=== PATIENT | female | born 1975 | race Caucasian/White ===

== ENCOUNTER 2017-07-24 14:15 | Emergency (ER) | payer OTHER ==
[~2017-07-24] VITALS: Ht 172.7 cm; Wt 134.2 kg
[2017-07-24] MEDS ORDERED: SODIUM CHLORIDE 0.9% 1000ML 1,000 ML IV STA (14:26)
[2017-07-24 14:31] VITALS: TEMP 36.8
[2017-07-24 14:34] VITALS: Ht 172.7 cm; Wt 134.2 kg
[2017-07-24 14:35] VITALS: O2SAT 99
[2017-07-24 14:49] LABS: BASO % 0.4 %; BASO ABS # 0.04 K/uL (0-0.2); EOS % 1.6 %; EOS ABS # 0.17 K/uL (0-0.5); HEMATOCRIT 36.8 % (37-47); HEMOGLOBIN 12.7 g/dL (12.0-16.0); IG# 0.05 K/uL (0.00-0.02); LYMPH % 18.7 %; LYMPH ABS # 1.95 K/uL (1.2-3.4); MEAN CELL VOLUME 84.2 fL (80-100); MEAN CORPUSCULAR HEMOGLOBIN 29.1 pg (25-34); MEAN CORPUSCULAR HGB CONC 34.5 g/dl (32-36); MEAN PLATELET VOLUME 9.8 fL (7.4-10.4); MONO % 5.7 %; NEUT % 73.1 %; NEUT ABS # 7.63 K/uL (1.4-6.5); PLATELET COUNT 285 K/uL (130-400); RED CELL DISTRIBUTION WIDTH CV 14.4 % (11.5-14.5); RED CELL DISTRIBUTION WIDTH SD 43.9 fL (36.4-46.3); WHITE BLOOD COUNT 10.44 K/uL (4.8-10.8)
[2017-07-24 14:58] LABS: PTT PATIENT 24.8 SECONDS (21.0-31.0)
[2017-07-24 15:08] LABS: ALBUMIN 3.4 gm/dl (3.4-5.0); ALT/SGPT 26 U/L (12-78); AST/SGOT 12 U/L (15-37); BLOOD UREA NITROGEN 13 mg/dl (7-18); CALCIUM 8.8 mg/dl (8.5-10.1); CARBON DIOXIDE 23 mmol/L (21-32); CREATININE 0.86 mg/dl (0.60-1.20); GLUCOSE 230 mg/dl (70-99); LIPASE 152 U/L (73-393); POTASSIUM 3.8 mmol/L (3.5-5.1); SODIUM 136 mmol/L (136-145)
[2017-07-24 15:19] LABS: ALKALINE PHOSPHATASE 89 U/L (45-117); TOTAL PROTEIN 7.5 gm/dl (6.4-8.2)
[2017-07-24] MEDS ORDERED: CEFD1CAP14 PO (15:51)
[2017-07-24] MEDS ORDERED: GLC/500 PO (15:51)
[2017-07-24] MEDS ORDERED: LEVO100T7 PO (15:51)
[2017-07-24] MEDS ORDERED: LISI-789 PO (15:51)
[2017-07-24] MEDS ORDERED: ERGO500037 PO (15:51)
[2017-07-24] MEDS ORDERED: LORA10TA6 PO (15:51)
[2017-07-24 17:17] VITALS: BP 152/88; PULSE 102; O2SAT 98
--- NOTE | 2017-07-24 22:31 | EMERGENCY ROOM VISIT NOTE ---
History Report prepared by Kim: Curtis Brady Under the Supervision of: Dr. Omar Simon M.D. First contact with patient: 14:26 Chief Complaint: SYNCOPE (NEAR SYNCOPE) Stated Complaint: NEAR SYNCOPE/HYPERGLYCEMIA Nursing Triage Summary: BECAME DIZZY TODAY HAS BEEN HAVING INCREASE BLOOD SUGARS History of Present Illness The patient is a 42 year old female who presents to the Emergency Room with complaints of waxing and waning unstable blood sugar levels that she noticed this morning, several hours prior to arrival. The patient states that her sugars were into the 300's this morning, and spiked again after lunch. She states that she felt dizzy, light headed, and fatigued with her unstable sugar levels. She also felt some shortness of breath while moving around today. She has had these symptoms in the past when her sugar is high. The patient was on a prescription of Prednisone last week and took the last dosage las Friday, one week ago. Her blood sugars have been unstable since November of last year, which is when she was started on Metformin by her primary care physician. The patient had a sinus infection two weeks ago, but denies any current LOC, headache, fevers, chills, diaphoresis, visual changes, neck pain, chest pain, nausea, vomiting, abdominal pain, back pain, melena, hematochezia, urinary symptoms, lymphadenopathy, rash, or other complaints. 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 Review of Systems See HPI for pertinent positives and negatives. A total of ten systems were reviewed and were otherwise negative. Past Medical & Surgical Medical Problems: (1) Diabetes Diabetes Family History Diabetes mellitus Social History Smoking Status: Never Smoker Marital Status: Housing Status: lives with family Occupation Status: employed Current/Historical Medications Scheduled Cefdinir (Omnicef), 300 MG PO Q12H Ergocalciferol (Vitamin D 95510 Unit), 50,000 INTER.UNIT PO WK Levothyroxine Sodium (Levothyroxine Sodium), 100 MCG PO DAILY Lisinopril (Zestril), 2.5 MG PO DAILY Loratadine (Claritin), 10 MG PO DAILY Metformin Hcl (Glucophage), 500 MG PO BID Allergies Coded Allergies: Ibuprofen (Verified Allergy, Severe, Swelling of tongue and throat, 1/18/ 18) Physical Exam Vital Signs Date Time Temp Pulse Resp B/P (MAP) Pulse Ox O2 Delivery O2 Flow Rate FiO2 07/24/17 17:17 102 20 152/88 98 07/24/17 15:03 113 19 139/84 97 Room Air 07/24/17 14:35 99 Room Air 07/24/17 14:31 36.8 117 18 128/80 99 Room Air 07/24/17 14:30 116 Physical Exam GENERAL: Awake, alert, Tearful appearing HENT: Normocephalic, atraumatic. Oropharynx unremarkable. EYES: Normal conjunctiva. Sclera non-icteric. NECK: Supple. No nuchal rigidity. FROM. No JVD. RESPIRATORY: Clear to auscultation. CARDIAC: Tachycardic rate, normal rhythm. Extremities warm and well perfused. Pulses equal. ABDOMEN: Soft, non-distended. No tenderness to palpation. No rebound or guarding. No masses. RECTAL: Deferred. MUSCULOSKELETAL: Chest examination reveals no tenderness. The back is symmetrical on inspection without obvious abnormality. There is no CVA tenderness to palpation. No joint edema. LOWER EXTREMITIES: Calves are equal size bilaterally and non-tender. No edema. No discoloration. NEURO: Normal sensorium. No sensory or motor deficits noted. SKIN: No rash or jaundice noted. Medical Decision & Procedures Laboratory Results 07/24/17 14:35 Red Blood Count 4.37, Mean Corpuscular Volume 84.2, Mean Corpuscular Hemoglobin 29.1, Mean Corpuscular Hemoglobin Concent 34.5, Mean Platelet Volume 9.8, Neutrophils (%) (Auto) 73.1, Lymphocytes (%) (Auto) 18.7, Monocytes (%) (Auto) 5.7, Eosinophils (%) (Auto) 1.6, Basophils (%) (Auto) 0.4, Neutrophils # (Auto) 7.63, Lymphocytes # (Auto) 1.95, Monocytes # (Auto) 0.60, Eosinophils # (Auto) 0.17, Basophils # (Auto) 0.04 07/24/17 14:35 Test 07/24/17 14:35 07/24/17 15:10 White Blood Count 10.44 K/uL (4.8-10.8) Red Blood Count 4.37 M/uL (4.2-5.4) Hemoglobin 12.7 g/dL (12.0-16.0) Hematocrit 36.8 % (37-47) Mean Corpuscular Volume 84.2 fL (80-100) Mean Corpuscular Hemoglobin 29.1 pg (25-34) Mean Corpuscular Hemoglobin Concent 34.5 g/dl (32-36) Platelet Count 285 K/uL (130-400) Mean Platelet Volume 9.8 fL (7.4-10.4) Neutrophils (%) (Auto) 73.1 % Lymphocytes (%) (Auto) 18.7 % Monocytes (%) (Auto) 5.7 % Eosinophils (%) (Auto) 1.6 % Basophils (%) (Auto) 0.4 % Neutrophils # (Auto) 7.63 K/uL (1.4-6.5) Lymphocytes # (Auto) 1.95 K/uL (1.2-3.4) Monocytes # (Auto) 0.60 K/uL (0.11-0.59) Eosinophils # (Auto) 0.17 K/uL (0-0.5) Basophils # (Auto) 0.04 K/uL (0-0.2) RDW Standard Deviation 43.9 fL (36.4-46.3) RDW Coefficient of Variation 14.4 % (11.5-14.5) Immature Granulocyte % (Auto) 0.5 % Immature Granulocyte # (Auto) 0.05 K/uL (0.00-0.02) Prothrombin Time 10.0 SECONDS (9.0-12.0) Prothromb Time International Ratio 1.0 (0.9-1.1) Activated Partial Thromboplast Time 24.8 SECONDS (21.0-31.0) Partial Thromboplastin Ratio 1.0 D-Dimer < 190 ug/L FEU (0-500) Anion Gap 10.0 mmol/L (3-11) Est Creatinine Clear Calc Drug Dose 122.5 ml/min Estimated GFR () 95.9 Estimated GFR (Non- 82.7 BUN/Creatinine Ratio 15.1 (10-20) Calcium Level 8.8 mg/dl (8.5-10.1) Magnesium Level 1.8 mg/dl (1.8-2.4) Total Bilirubin 0.4 mg/dl (0.2-1) Direct Bilirubin < 0.1 mg/dl (0-0.2) Aspartate Amino Transf (AST/SGOT) 12 U/L (15-37) Alanine Aminotransferase (ALT/SGPT) 26 U/L (12-78) Alkaline Phosphatase 89 U/L (45-117) Troponin I < 0.015 ng/ml (0-0.045) Total Protein 7.5 gm/dl (6.4-8.2) Albumin 3.4 gm/dl (3.4-5.0) Lipase 152 U/L (73-393) Thyroid Stimulating Hormone (TSH) 1.360 uIu/ml (0.300-4.500) Human Chorionic Gonadotropin, Qual NEG (NEG) Urine Color YELLOW Urine Appearance CLEAR (CLEAR) Urine pH 5.0 (4.5-7.5) Urine Specific [place] 1.032 (1.000-1.030) Urine Protein NEG (NEG) Urine Glucose (UA) 3+ (NEG) Urine Ketones 1+ (NEG) Urine Occult Blood NEG (NEG) Urine Nitrite NEG (NEG) Urine Bilirubin NEG (NEG) Urine Urobilinogen NEG (NEG) Urine Leukocyte Esterase NEG (NEG) Laboratory results reviewed by me Medications Administered Medications (Trade) Dose Ordered Sig/Radha Route Start Time Stop Time Status Last Admin Dose Admin Sodium Chloride 1,000 ml @ 999 mls/hr Q1H1M STAT IV 07/24/17 14:26 07/24/17 15:26 DC 07/24/17 15:03 999 MLS/HR ECG Indication: SOB/dyspnea Rate (beats per minute): 112 Rhythm: sinus tachycardia Findings: no acute ischemic change, no ectopy Change: Patient's electrocardiogram reading per my interpretation. ED Course 1426: Ordered Sodium Chloride 1000 mL @ 999 mL/hr IV. 1439: The patient was evaluated in room A12. A complete history and physical exam was performed. 1659: I reevaluated the patient. Discussed results and discharge instructions: She verbalized understanding and agreement. The patient is ready for discharge. Medical Decision Prior records/ancillary studies reviewed and summarized above. Nursing notes reviewed and agree them. Additional history obtained from family. The patient's history was concerning for weakness, malaise and hyperglycemia. Differential diagnosis: Etiologies such as metabolic, infection, hypo/hyperglycemia, electrolyte abnormalities, cardiac sources, intracerebral event, toxicologic, neurologic, as well as others were entertained. Physical examination: As above. ER treatment provided: IV Lock IV hydration normal saline On reassessment the patient felt better. Diagnostics interpretation by me: ECG: Sinus tachycardia The labs revealed an unremarkable CBC and chemistry panel except for mild hyperglycemia. Cardiac markers negative. D-dimer negative. Urinalysis unremarkable. The patient is not . Imaging studies: Deferred Clinically the patient is doing well. She had hypoglycemia and general malaise. She is recovering from a sinus infection and notes the symptoms have improved. She is still taking Omnicef. She does not have any headache. The patient feels better after hydration. The exact etiology of her symptoms not obvious at this time. It is possible that she is recovering from her last illness. She will have to follow-up with her primary physician regarding her diabetes. She notes she typically runs in the 200 range. If she worsens in any way she will be back. She feels comfortable with conservative management. By the evaluation outlined above emergent etiologies such as infection, electrolyte abnormalities, cardiac sources, intracerebral event, toxicologic, neurologic, abnormalities blood glucose, metabolic, as well as others were deemed relatively unlikely. The patient and family were informed about the findings as listed above. All questions were answered and they were pleased with the treatment. Return instructions were outlined and the patient was discharged in stable condition. Outpatient prescription management: None Referral: The patient was referred back to her primary care physician for follow-up in 2 to 3 days for a recheck of the current condition. Blood Pressure Screening Patient's blood pressure: Elevated blood pressure Blood pressure disposition: Referred to PCP Impression Primary Impression: Hyperglycemia Additional Impression: Malaise Scribe Attestation The scribe's documentation has been prepared under my direction and personally reviewed by me in its entirety. I confirm that the note above accurately reflects all work, treatment, procedures, and medical decision making performed by me. Departure Information Dispostion Home / Self-Care Referrals No Doctor, Assigned (PCP) Forms HOME CARE DOCUMENTATION FORM, IMPORTANT VISIT INFORMATION Patient Instructions My [facility] Additional Instructions Rest. Drink plenty of fluids. Watch your consumption of simple carbohydrates. Increase your consumption of protein and fats. Follow-up with primary office tomorrow to schedule a recheck. Return to the ER for chest pain, headache, passing out, difficulty breathing, fevers, numbness, tingling, worsening of your condition, or as needed. Problem Qualifiers
== END 2017-07-24 17:19 | disposition home or self-care (01) ==
LOC: EDBD 14:15 → C.EDA 14:18
DX: E11.65 Type 2 diabetes mellitus with hyperglycemia (principal); R53.81 Other malaise; Z83.3 Family history of diabetes mellitus; Z79.84 Long term (current) use of oral hypoglycemic drugs; Z79.899 Other long term (current) drug therapy

== ENCOUNTER → 2017-08-19 | Outpatient (CLI) | payer OTHER ==
[~2017-08-19] MED LIST: CEFD1CAP14 PO; ERGO500037 PO; GLC/500 PO; LEVO100T7 PO; LISI-789 PO; LORA10TA6 PO
--- NOTE | 2017-08-19 08:59 | DIAGNOSTIC IMAGING REPORT ---
SINUS CT CT DOSE: 269.19 mGycm HISTORY: CHRONIC SINUSITIS TECHNIQUE: Multiaxial CT images of the paranasal sinuses were performed and reformatted in the coronal plane without the use of contrast. A dose lowering technique was utilized adhering to the principles of ALARA. COMPARISON: None. FINDINGS: The frontal sinuses, sphenoid sinuses, maxillary sinuses, right ethmoid air cells, and mastoid air cells are clear. There is a single partially opacified left posterior ethmoid air cell. No fluid levels within the paranasal sinuses. The nasal septum is midline. The orbital floors and lamina papyracea are intact. Bilateral Sha cells are noted. The bilateral ostiomeatal units are patent. The visualized brain parenchyma are unremarkable. IMPRESSION: 1. A single partially opacified left posterior ethmoid air cell. Otherwise, the paranasal sinuses and mastoid air cells are clear. 2. The nasal septum is midline. 3. Bilateral Sha cells are noted. The ostiomeatal units remain patent. Electronically signed by: Weston Mckinnon M.D. 08/19/2017 8:57 AM Dictated Date/Time: 08/19/2017 8:53 AM
== END | disposition home or self-care (01) ==
LOC: C.CTS 08:13
PROVIDERS: ATTEND Otolaryngology
DX: J32.9 Chronic sinusitis, unspecified (principal)